=== PATIENT | female | born 1965 | race Two or more races ===

== ENCOUNTER → 2018-05-04 | Outpatient (CLI) | payer MEDICARE, MEDICAID ==
[~2018-05-04] MED LIST: ALPR1TAB2 PO; AMLO5TAB2 PO; ARIP5TAB13 PO; ASMANEX TWISTHALER NAS; ASPI-691 PO; BUDE180A INH; CYCL-259 PO; DULO30CA2 PO; GABA600T2 PO; GADOBUTROL 10 MMOL/10 ML PFS ONE; GADOBUTROL 7.5 MMOL/7.5 ML PFS ONE; HYDR25TA6 PO; IBUP200T49 PO; LACT1CAP37 PO; LISI40TA PO; LURA40TA PO; MULT-516 PO; NYST1POW2 TP; OLME1TAB38 PO; ONDA4TAB10 PO; OXYC-302 PO; SULF1TAB24 PO; VITAMIN B-12 PO
== END | disposition home or self-care (01) ==
LOC: CFH 08:14
DX: S83.242A Other tear of medial meniscus, current injury, left knee, initial encounter (principal); S83.282A Other tear of lateral meniscus, current injury, left knee, initial encounter; M17.12 Unilateral primary osteoarthritis, left knee; M25.462 Effusion, left knee; M65.862 Other synovitis and tenosynovitis, left lower leg; M71.22 Synovial cyst of popliteal space [Baker], left knee; X58.XXXA Exposure to other specified factors, initial encounter; Y93.89 Activity, other specified; Y92.89 Other specified places as the place of occurrence of the external cause; Y99.8 Other external cause status
CPT/HCPCS: 73723; 82565; A9585

== ENCOUNTER 2018-08-16 16:22 | Observation (INO) | payer MEDICARE, MEDICAID ==
[~2018-08-16] VITALS: Ht 162.6 cm; Wt 166.0 kg
[~2018-08-16 16:22] MED LIST changes: -AMLO5TAB2 PO; +AMLO5TAB7 PO; +DIAZ5TAB4 PO; -GADOBUTROL 10 MMOL/10 ML PFS ONE; -GADOBUTROL 7.5 MMOL/7.5 ML PFS ONE; +HYOS0.1282 PO; +MOME13HF3 INH; +OXCA300T19 PO; +PROP10TA PO
[2018-08-16 17:06] LABS: BASOPHILS # (AUTO) 0.04 x10^3/uL (0-0.1); BASOPHILS % (AUTO) 0 % (0-1); EOSINOPHILS # (AUTO) 0.25 x10^3/uL (0-0.4); EOSINOPHILS % (AUTO) 3 % (1-7); LYMPHOCYTES # (AUTO) 2.03 x10^3/uL (1-3.4); LYMPHOCYTES % (AUTO) 22 % (22-44); MD NO; MEAN CORPUSCULAR HEMOGLOBIN 25.8 pg (27.0-34.8); MEAN CORPUSCULAR HGB CONC 33.3 g/dL (32.4-35.8); MEAN CORPUSCULAR VOLUME 77.4 fL (80-100); MEAN PLATELET VOLUME 7.9 fL (7.4-10.4); MONOCYTES # (AUTO) 0.37 x10^3/uL (0.2-0.8); MONOCYTES % (AUTO) 4 % (2-9); NEUTROPHILS # (AUTO) 6.69 x10^3/uL (1.8-6.8); NEUTROPHILS % (AUTO) 71 % (42-75); PLATELET COUNT 383 x10^3/uL (130-400); RED BLOOD COUNT 5.83 x10^6/uL (3.82-5.3); RED CELL DISTRIBUTION WIDTH 16.1 % (9.6-15.2)
[2018-08-16 17:17] LABS: ALANINE AMINOTRANSFERASE 23 U/L (12-78); ALBUMIN 3.2 g/dL (3.4-5.0); ANION GAP 9 mmol/L (5-15); CALCIUM 8.9 mg/dL (8.5-10.1); CHLORIDE 97 mmol/L (98-107); CREATININE 0.61 mg/dL (0.55-1.02); D-DIMER 0.71 ug/mlFEU (0.00-0.52); INTERNATIONAL NORMALIZED RATIO 1.05 (0.93-1.1); PROTHROMBIN TIME 10.9 Seconds (9.6-11.5)
[2018-08-16 17:19] LABS: ALKALINE PHOSPHATASE 145 U/L (45-117); BILIRUBIN,TOTAL 0.4 mg/dL (0.2-1.0); TOTAL PROTEIN 7.1 g/dL (6.4-8.2)
[2018-08-16] MEDS ORDERED: OMNIPAQUE 350 MG/ML, 150 ML BOTTLE ONE (18:23)
[2018-08-16] MEDS ORDERED: ONDA4TAB10 PO (18:48)
[2018-08-16 20:36] VITALS: BP 126/85
[2018-08-16] MEDS ORDERED: ONDANSETRON ODT 4 MG PO PRN (21:00)
[2018-08-16] MEDS ORDERED: ASA/APAP/ CAFFEINE TABLET PO PRN (21:00)
[2018-08-16] MEDS ORDERED: MOMETASONE FUROATE INH PRN (21:00)
[2018-08-16] MEDS ORDERED: DIAZEPAM 5 MG TABLET PO PRN (21:00)
[2018-08-16] MEDS ORDERED: HYOSCYAMINE 0.125 MG TABLET PO PRN (21:00)
[2018-08-16 21:31] LABS: TROPONIN I < 0.015 ng/mL (0.000-0.045)
[2018-08-16] MEDS: CYCLOBENZAPRINE 10 MG TABLET PO PRN (21:43)
[2018-08-16] MEDS: POLYETHYLENE GLYCOL 17 GM PACKET PO SCH (21:43)
[2018-08-16] MEDS: PROPRANOLOL 10 MG TABLET PO SCH (21:43)
[2018-08-16] MEDS: HEPARIN 5,000 UNITS/ML, 1ML SQ SCH (21:43)
[2018-08-16] MEDS: OXCARBAZEPINE 300MG TABLET PO SCH (21:43)
[2018-08-17 01:46] VITALS: BP 133/90
[2018-08-17 03:06] LABS: TROPONIN I < 0.015 ng/mL (0.000-0.045)
[2018-08-17] MEDS: HEPARIN 5,000 UNITS/ML, 1ML SQ SCH ×2 (05:56→11:57)
[2018-08-17] MEDS ORDERED: MAGNESIUM OXIDE 400 MG TABLET PO ONE (06:00)
[2018-08-17 06:17] LABS: LDL/HDL RATIO 1.5 (0.5-3.0)
[2018-08-17 06:23] LABS: HEMOGLOBIN A1C 6.6 % (4.2-6.3)
[2018-08-17 07:56] VITALS: BP 127/82
[2018-08-17] MEDS ORDERED: PROPRANOLOL 20 MG TABLET ONE (08:01)
[2018-08-17] MEDS: PROPRANOLOL 10 MG TABLET PO SCH (08:42)
[2018-08-17] MEDS ORDERED: OLMESARTAN MED HOMEMEDPO SCH (09:00)
[2018-08-17] MEDS ORDERED: DULOXETINE 30 MG CAPSULE.DR PO SCH (09:00)
[2018-08-17] MEDS ORDERED: HCTZ HOMEMEDPO SCH (09:00)
[2018-08-17] MEDS ORDERED: AMLODIPINE HOMEMEDPO SCH (09:00)
[2018-08-17] MEDS: POLYETHYLENE GLYCOL 17 GM PACKET PO SCH (09:02)
[2018-08-17] MEDS: OXCARBAZEPINE 300MG TABLET PO SCH (10:52)
[2018-08-17 13:00] VITALS: BP 118/61
[2018-08-17] MEDS: CYCLOBENZAPRINE 10 MG TABLET PO PRN (14:32)
== END 2018-08-17 15:38 | disposition home or self-care (01) ==
LOC: ED 16:57 → EDIP 18:41 → INTOOBSV 18:41 → 5SO 19:56 → DCLOUNGE 08-17 15:20
PROVIDERS: ADMIT Family Medicine; ATTEND Family Medicine
DX: R09.02 Hypoxemia (principal); I10 Essential (primary) hypertension; F41.1 Generalized anxiety disorder; J06.9 Acute upper respiratory infection, unspecified; F31.9 Bipolar disorder, unspecified; E66.2 Morbid (severe) obesity with alveolar hypoventilation; E11.9 Type 2 diabetes mellitus without complications; Z99.81 Dependence on supplemental oxygen; Z68.44 Body mass index [BMI] 60.0-69.9, adult; Z23 Encounter for immunization; Z79.899 Other long term (current) drug therapy
CPT/HCPCS: 36415; 71046; 71275; 80053; 80061; 83036; 83735; 84100; 84443; 84484; 85025; 85379; 85610; 85730; 90471; 90656; 93005; 93306; 96372; 99285; G0378; J1644; Q9967

== ENCOUNTER 2019-06-13 11:08 | Outpatient (CLI) | payer MEDICARE, MEDICAID ==
[~2019-06-13 11:08] MED LIST changes: +AMLO-150 PO; -AMLO5TAB7 PO; +BENZ200C48 PO; +DULO60CA7 PO; +FURO40TA6 PO; -GABA600T2 PO; +GABA600T7 PO; +POTA20TA89 PO; +PROM25TA10 PO; -PROP10TA PO; +PROP10TA16 PO
== END 2019-06-13 23:59 | disposition home or self-care (01) ==
LOC: RAD 11:08
PROVIDERS: ATTEND Internal Medicine Cardiovascular Disease
DX: R06.02 Shortness of breath (principal)
CPT/HCPCS: 78582; A9540; A9558

== ENCOUNTER 2019-12-24 10:27 | Inpatient (IN) | payer MEDICARE, MEDICAID ==
[~2019-12-24] VITALS: Ht 157.5 cm; Wt 136.4 kg
[~2019-12-24 10:27] MED LIST changes: +DOCU-131 PO; +FERR325T5 PO; +MACI10TA PO; +SELE800T PO
[2019-12-24] MEDS ORDERED: SODIUM CHLORIDE 0.9% 1,000 ML IV ONE (10:33)
[2019-12-24 10:51] LABS: BASOPHILS # (AUTO) 0.03 x10^3/uL (0-0.1); BASOPHILS % (AUTO) 1 % (0-1); EOSINOPHILS # (AUTO) 0.15 x10^3/uL (0-0.4); EOSINOPHILS % (AUTO) 3 % (1-7); LYMPHOCYTES # (AUTO) 0.66 x10^3/uL (1-3.4); LYMPHOCYTES % (AUTO) 11 % (22-44); MD NO; MEAN CORPUSCULAR HGB CONC 32.9 g/dL (32.4-35.8); MEAN CORPUSCULAR VOLUME 85.2 fL (80-100); MEAN PLATELET VOLUME 10.1 fL (7.4-10.4); MONOCYTES # (AUTO) 0.24 x10^3/uL (0.2-0.8); MONOCYTES % (AUTO) 4 % (2-9); NEUTROPHILS # (AUTO) 4.78 x10^3/uL (1.8-6.8); NEUTROPHILS % (AUTO) 82 % (42-75); PLATELET COUNT 139 x10^3/uL (130-400); RED BLOOD COUNT 4.58 x10^6/uL (3.82-5.3); RED CELL DISTRIBUTION WIDTH 15.4 % (9.6-15.2)
[2019-12-24] MEDS ORDERED: LIDOCAINE-MPF 1%, 5ML ONE (10:55)
[2019-12-24] MEDS ORDERED: SODIUM CHLORIDE FLUSH 10ML SYR IVF ONE (11:00)
[2019-12-24] MEDS ORDERED: SODIUM CHLORIDE 0.9% 1,000ML IVBOLUS ONE (11:00)
[2019-12-24] MEDS ORDERED: LIDOCAINE-MPF 1%, 5ML INFIL ONE (11:00)
[2019-12-24 11:01] LABS: ALANINE AMINOTRANSFERASE 18 U/L (12-78); ALBUMIN 3.4 g/dL (3.4-5.0); ANION GAP 11 mmol/L (5-15); CALCIUM 9.2 mg/dL (8.5-10.1); CHLORIDE 108 mmol/L (98-107); CREATININE 2.94 mg/dL (0.55-1.02)
[2019-12-24 11:06] LABS: ALKALINE PHOSPHATASE 94 U/L (45-117); BILIRUBIN,TOTAL 0.8 mg/dL (0.2-1.0); TOTAL PROTEIN 6.8 g/dL (6.4-8.2); TROPONIN I 0.028 ng/mL (0.000-0.045)
--- NOTE | 2019-12-24 11:15 | NUR ---
bib remsa syncopal event x 2 glf lac to the scalp approx 3cm hx pulm edema pulm htn ao4 on arrival w 16ga lac n/v/d for the past week that stopped on sat on arrival erp to the bs fluids started and second iv established pt remained a04 able to answer all questions complete equal rom all extremities good distal cms
--- NOTE | 2019-12-24 11:17 | NUR ---
dr garcia spoke with unr
--- NOTE | 2019-12-24 11:48 | NUR ---
unr to the bs
[2019-12-24] MEDS ORDERED: SODIUM CHLORIDE 0.9% 1,000 ML IV SCH (12:06)
[2019-12-24] MEDS ORDERED: ONDANSETRON ODT 4 MG PO PRN (12:30)
[2019-12-24] MEDS ORDERED: LABETALOL 5MG/ML, 20ML IVPush PRN (12:30)
--- NOTE | 2019-12-24 13:36 | NUR ---
[employer]: REPORT CALLED TO [facility]AN[facility]. POC DISCUSSED
[2019-12-24] MEDS: HEPARIN 5,000 UNITS/ML, 1ML SQ SCH ×2 (14:20→22:27)
[2019-12-24 14:24] VITALS: BP 91/58
[2019-12-24] MEDS ORDERED: SODIUM CHLORIDE 0.9%, 500ML IVBOLUS ONE (15:00)
[2019-12-24] MEDS ORDERED: ALBUTEROL SULFATE 2.5 MG/3 ML NPPB PRN (17:00)
[2019-12-24 20:33] VITALS: BP 86/53
[2019-12-24 23:41] VITALS: BP 91/62
[2019-12-25] MEDS: ACETAMINOPHEN 325 MG TABLET PO PRN ×2 (01:37→14:31)
[2019-12-25 05:45] LABS: BASOPHILS # (AUTO) 0.02 x10^3/uL (0-0.1); BASOPHILS % (AUTO) 0 % (0-1); EOSINOPHILS # (AUTO) 0.25 x10^3/uL (0-0.4); EOSINOPHILS % (AUTO) 4 % (1-7); LYMPHOCYTES # (AUTO) 0.96 x10^3/uL (1-3.4); LYMPHOCYTES % (AUTO) 17 % (22-44); MD NO; MEAN CORPUSCULAR HEMOGLOBIN 28.4 pg (27.0-34.8); MEAN CORPUSCULAR HGB CONC 32.6 g/dL (32.4-35.8); MEAN CORPUSCULAR VOLUME 86.9 fL (80-100); MEAN PLATELET VOLUME 10.3 fL (7.4-10.4); MONOCYTES # (AUTO) 0.47 x10^3/uL (0.2-0.8); MONOCYTES % (AUTO) 8 % (2-9); NEUTROPHILS # (AUTO) 3.93 x10^3/uL (1.8-6.8); NEUTROPHILS % (AUTO) 70 % (42-75); PLATELET COUNT 118 x10^3/uL (130-400); RED BLOOD COUNT 4.57 x10^6/uL (3.82-5.3); RED CELL DISTRIBUTION WIDTH 15.4 % (9.6-15.2)
[2019-12-25 05:51] LABS: ALBUMIN 3.4 g/dL (3.4-5.0); ANION GAP 7 mmol/L (5-15); CALCIUM 9.3 mg/dL (8.5-10.1); CHLORIDE 107 mmol/L (98-107)
[2019-12-25 05:55] LABS: ALANINE AMINOTRANSFERASE 16 U/L (12-78); ALKALINE PHOSPHATASE 90 U/L (45-117); BILIRUBIN,TOTAL 0.7 mg/dL (0.2-1.0); CREATININE 1.64 mg/dL (0.55-1.02)
[2019-12-25] MEDS: HEPARIN 5,000 UNITS/ML, 1ML SQ SCH ×3 (06:26→22:45)
[2019-12-25] MEDS: MOMETASONE FUROATE INH SCH (09:00)
[2019-12-25] MEDS: MACITENTAN 10 MG PO SCH (09:00)
[2019-12-25 09:07] VITALS: BP 76/55
[2019-12-25] MEDS ORDERED: SODIUM CHLORIDE 0.9%, 500ML IVBOLUS ONE (09:30)
[2019-12-25 10:04] LABS: BASOPHILS # (AUTO) 0.02 x10^3/uL (0-0.1); BASOPHILS % (AUTO) 0 % (0-1); EOSINOPHILS # (AUTO) 0.18 x10^3/uL (0-0.4); EOSINOPHILS % (AUTO) 3 % (1-7); LYMPHOCYTES # (AUTO) 0.88 x10^3/uL (1-3.4); LYMPHOCYTES % (AUTO) 15 % (22-44); MD NO; MEAN CORPUSCULAR HEMOGLOBIN 28.1 pg (27.0-34.8); MEAN CORPUSCULAR HGB CONC 32.4 g/dL (32.4-35.8); MEAN CORPUSCULAR VOLUME 86.7 fL (80-100); MEAN PLATELET VOLUME 10.1 fL (7.4-10.4); MONOCYTES # (AUTO) 0.45 x10^3/uL (0.2-0.8); MONOCYTES % (AUTO) 8 % (2-9); NEUTROPHILS # (AUTO) 4.32 x10^3/uL (1.8-6.8); NEUTROPHILS % (AUTO) 74 % (42-75); PLATELET COUNT 129 x10^3/uL (130-400); RED BLOOD COUNT 4.45 x10^6/uL (3.82-5.3); RED CELL DISTRIBUTION WIDTH 15.2 % (9.6-15.2)
[2019-12-25 13:49] VITALS: BP 91/56
[2019-12-25] MEDS: SODIUM CHLORIDE 0.9% 1,000 ML IV SCH (15:02)
[2019-12-25 20:30] VITALS: BP 88/54
[2019-12-26 02:02] VITALS: BP_SYST 77; BP_SYST 87; BP_DIAS 54; BP_DIAS 60
[2019-12-26] MEDS: ACETAMINOPHEN 325 MG TABLET PO PRN (02:15)
[2019-12-26] MEDS: SODIUM CHLORIDE 0.9% 1,000 ML IV SCH ×2 (03:08→16:40)
[2019-12-26 05:41] LABS: BASOPHILS # (AUTO) 0.02 x10^3/uL (0-0.1); BASOPHILS % (AUTO) 0 % (0-1); EOSINOPHILS # (AUTO) 0.24 x10^3/uL (0-0.4); EOSINOPHILS % (AUTO) 5 % (1-7); LYMPHOCYTES # (AUTO) 0.93 x10^3/uL (1-3.4); LYMPHOCYTES % (AUTO) 19 % (22-44); MD NO; MEAN CORPUSCULAR HEMOGLOBIN 27.7 pg (27.0-34.8); MEAN CORPUSCULAR HGB CONC 32.2 g/dL (32.4-35.8); MEAN PLATELET VOLUME 10.7 fL (7.4-10.4); MONOCYTES # (AUTO) 0.37 x10^3/uL (0.2-0.8); MONOCYTES % (AUTO) 8 % (2-9); NEUTROPHILS # (AUTO) 3.29 x10^3/uL (1.8-6.8); NEUTROPHILS % (AUTO) 68 % (42-75); PLATELET COUNT 110 x10^3/uL (130-400); RED BLOOD COUNT 4.52 x10^6/uL (3.82-5.3); RED CELL DISTRIBUTION WIDTH 15.8 % (9.6-15.2)
[2019-12-26 05:47] LABS: ANION GAP 10 mmol/L (5-15); CALCIUM 9.4 mg/dL (8.5-10.1); CHLORIDE 109 mmol/L (98-107); CREATININE 1.19 mg/dL (0.55-1.02)
[2019-12-26 05:48] LABS: ALANINE AMINOTRANSFERASE 19 U/L (12-78); ALBUMIN 3.3 g/dL (3.4-5.0)
[2019-12-26 05:50] LABS: ALKALINE PHOSPHATASE 95 U/L (45-117); BILIRUBIN,TOTAL 0.8 mg/dL (0.2-1.0); TOTAL PROTEIN 6.8 g/dL (6.4-8.2)
[2019-12-26] MEDS: HEPARIN 5,000 UNITS/ML, 1ML SQ SCH ×3 (06:41→22:55)
[2019-12-26 07:08] VITALS: BP 92/63
[2019-12-26] MEDS: DULOXETINE 30 MG CAPSULE.DR PO SCH (08:36)
[2019-12-26] MEDS: MACITENTAN 10 MG PO SCH (08:36)
[2019-12-26] MEDS: MOMETASONE FUROATE INH SCH (08:36)
[2019-12-26] MEDS: PROMETHAZINE 25MG TABLET PO PRN (12:11)
[2019-12-26 13:55] VITALS: BP 82/62
[2019-12-26 16:52] VITALS: BP_SYST 73; BP_SYST 95; BP_DIAS 57; BP_DIAS 63
[2019-12-26 20:58] VITALS: BP 88/60
[2019-12-26] MEDS: DOCUSATE 100 MG CAPSULE PO PRN (21:03)
[2019-12-27] VITALS (8 sets, daily range): BP systolic 88–115; BP diastolic 59–82
[2019-12-27] MEDS: SODIUM CHLORIDE 0.9% 1,000 ML IV SCH (04:56)
[2019-12-27] MEDS: HEPARIN 5,000 UNITS/ML, 1ML SQ SCH ×3 (06:09→22:43)
[2019-12-27 06:35] LABS: BASOPHILS # (AUTO) 0.04 x10^3/uL (0-0.1); BASOPHILS % (AUTO) 1 % (0-1); EOSINOPHILS % (AUTO) 5 % (1-7); LYMPHOCYTES # (AUTO) 0.98 x10^3/uL (1-3.4); LYMPHOCYTES % (AUTO) 22 % (22-44); MD NO; MEAN CORPUSCULAR HGB CONC 32.5 g/dL (32.4-35.8); MEAN CORPUSCULAR VOLUME 86.3 fL (80-100); MONOCYTES # (AUTO) 0.27 x10^3/uL (0.2-0.8); MONOCYTES % (AUTO) 6 % (2-9); NEUTROPHILS # (AUTO) 3.02 x10^3/uL (1.8-6.8); NEUTROPHILS % (AUTO) 67 % (42-75); PLATELET COUNT 111 x10^3/uL (130-400); RED BLOOD COUNT 4.27 x10^6/uL (3.82-5.3); RED CELL DISTRIBUTION WIDTH 15.8 % (9.6-15.2)
[2019-12-27 06:46] LABS: INTERNATIONAL NORMALIZED RATIO 1.07 (0.93-1.1); PROTHROMBIN TIME 11.3 Seconds (9.6-11.5)
[2019-12-27 06:48] LABS: ALBUMIN 3.3 g/dL (3.4-5.0); ANION GAP 8 mmol/L (5-15); CALCIUM 9.1 mg/dL (8.5-10.1); CHLORIDE 112 mmol/L (98-107)
[2019-12-27 06:52] LABS: ALANINE AMINOTRANSFERASE 19 U/L (12-78); ALKALINE PHOSPHATASE 102 U/L (45-117); BILIRUBIN,TOTAL 0.8 mg/dL (0.2-1.0); CREATININE 0.94 mg/dL (0.55-1.02); TOTAL PROTEIN 6.9 g/dL (6.4-8.2)
[2019-12-27] MEDS: MOMETASONE FUROATE INH SCH (09:00)
[2019-12-27] MEDS: DULOXETINE 30 MG CAPSULE.DR PO SCH (09:25)
[2019-12-27] MEDS: MACITENTAN 10 MG PO SCH (09:26)
[2019-12-27] MEDS: ACETAMINOPHEN 325 MG TABLET PO PRN ×2 (09:32→14:14)
[2019-12-27] MEDS: DOCUSATE 100 MG CAPSULE PO PRN (09:34)
[2019-12-27] MEDS ORDERED: SODIUM CHLORIDE 0.9% 1,000 ML IV SCH (10:30)
[2019-12-27] MEDS: PROMETHAZINE 25MG TABLET PO PRN (12:35)
[2019-12-27] MEDS ORDERED: SODIUM CHLORIDE 0.9% 250 ML IV SCH (20:00)
[2019-12-28 01:12] VITALS: BP 129/66
[2019-12-28 05:23] LABS: BASOPHILS # (AUTO) 0.03 x10^3/uL (0-0.1); BASOPHILS % (AUTO) 1 % (0-1); EOSINOPHILS # (AUTO) 0.19 x10^3/uL (0-0.4); EOSINOPHILS % (AUTO) 5 % (1-7); LYMPHOCYTES # (AUTO) 0.92 x10^3/uL (1-3.4); LYMPHOCYTES % (AUTO) 22 % (22-44); MD NO; MEAN CORPUSCULAR HEMOGLOBIN 28.1 pg (27.0-34.8); MEAN CORPUSCULAR HGB CONC 32.4 g/dL (32.4-35.8); MEAN CORPUSCULAR VOLUME 86.8 fL (80-100); MEAN PLATELET VOLUME 9.7 fL (7.4-10.4); MONOCYTES # (AUTO) 0.31 x10^3/uL (0.2-0.8); MONOCYTES % (AUTO) 7 % (2-9); NEUTROPHILS # (AUTO) 2.72 x10^3/uL (1.8-6.8); NEUTROPHILS % (AUTO) 66 % (42-75); PLATELET COUNT 108 x10^3/uL (130-400); RED BLOOD COUNT 4.33 x10^6/uL (3.82-5.3); RED CELL DISTRIBUTION WIDTH 15.1 % (9.6-15.2)
[2019-12-28 05:30] LABS: ALANINE AMINOTRANSFERASE 18 U/L (12-78); ALBUMIN 3.2 g/dL (3.4-5.0); ANION GAP 4 mmol/L (5-15); CALCIUM 9.4 mg/dL (8.5-10.1); CHLORIDE 110 mmol/L (98-107)
[2019-12-28 05:33] LABS: ALKALINE PHOSPHATASE 95 U/L (45-117); BILIRUBIN,TOTAL 0.6 mg/dL (0.2-1.0); CREATININE 1.02 mg/dL (0.55-1.02)
[2019-12-28] MEDS: HEPARIN 5,000 UNITS/ML, 1ML SQ SCH (06:20)
[2019-12-28 06:55] VITALS: BP 104/65
[2019-12-28] MEDS: DULOXETINE 30 MG CAPSULE.DR PO SCH (08:37)
[2019-12-28] MEDS: MOMETASONE FUROATE INH SCH (08:38)
[2019-12-28] MEDS: MACITENTAN 10 MG PO SCH (08:40)
[2019-12-28] MEDS ORDERED: FLU VACC QS2019-20 36MOS UP/PF 0.5 ML IM-VACC ONE (09:30)
[2019-12-28] MEDS ORDERED: PROMETHAZINE 25MG TABLET PO PRN (11:30)
[2019-12-28] MEDS ORDERED: SELE200T25 PO ×2 (11:59→12:01)
[2019-12-28 12:05] LABS: CRYPTOSPORIDIUM ANTIGEN Negative (Negative)
[2019-12-28] MEDS ORDERED: SELEXIPAG 800 MCG PO SCH (21:00)
== END 2019-12-28 18:25 | disposition home or self-care (01) | DRG 314 ==
LOC: ED 11:25 → EDIP 11:43 → 5SO 13:55
PROVIDERS: ADMIT Family Medicine; ATTEND Family Medicine
DX: I95.9 Hypotension, unspecified (principal); N17.0 Acute kidney failure with tubular necrosis; E43 Unspecified severe protein-calorie malnutrition; Z68.43 Body mass index [BMI] 50.0-59.9, adult; R19.7 Diarrhea, unspecified; E86.0 Dehydration; I50.9 Heart failure, unspecified; F31.9 Bipolar disorder, unspecified; E66.9 Obesity, unspecified; I27.20 Pulmonary hypertension, unspecified; R55 Syncope and collapse; S01.01XA Laceration without foreign body of scalp, initial encounter; F15.10 Other stimulant abuse, uncomplicated; F41.1 Generalized anxiety disorder; W18.39XA Other fall on same level, initial encounter; Z23 Encounter for immunization; Z88.0 Allergy status to penicillin; Z91.018 Allergy to other foods; Z82.49 Family history of ischemic heart disease and other diseases of the circulatory system; Y93.89 Activity, other specified; Y92.89 Other specified places as the place of occurrence of the external cause; Y99.8 Other external cause status
CPT/HCPCS: 12042; 36415; 70450; 71045; 80053; 83036; 83605; 83735; 83880; 84100; 84439; 84443; 84484; 85025; 85610; 85730; 86803; 87046; 87328; 87329; 87427; 87521; 87806; 89055; 90686; 93005; 93306; G0378; J1644; Q0169; G0475; J7030; J7040; J7050; Q0177